=== PATIENT | female | born 1970 | race Caucasian/White ===

== ENCOUNTER → 2020-12-15 | Outpatient (CLI) | payer OTHER ==
[~2020-12-15] MED LIST: BREO ELLIPTA 11 EACH INH; DALIRESP 500500 MCG PO; DOCUSATE SODIU250 MG PO; GABAPENTIN800 MG PO; HYDROCODON-ACE1 EAC4 PO; IBUPROFEN600 MG PO; IPRAT-ALBUT 0.5-3 ML INH; NICODERM CQ1 EAC1 TD; PHYSICIANS1000 MCG/1 INJ; PROTONIX 40 MG40 M1 PO; SUBOXONE 8 MG-1 EACH SL; VENTOLIN HFA 66.7 GM INH; ZOFRAN 4 MG TAB4 MG PO
[2020-12-15 12:00] LABS: RED BLOOD COUNT 5.37 M/UL (4.00-5.10); WHITE BLOOD COUNT 11.5 K/UL (4.5-11.0)
== END ==
LOC: OPSV2 10:30
PROVIDERS: Obstetrics & Gynecology
DX: Z01.818 Encounter for other preprocedural examination (principal); M62.89 Other specified disorders of muscle; R94.31 Abnormal electrocardiogram [ECG] [EKG]
CPT/HCPCS: 36415; 81001; 85025; 93005

== ENCOUNTER 2020-12-26 06:46 | Day surgery (SDC) | payer OTHER ==
[~2020-12-26] VITALS: Ht 162.6 cm; Wt 68.0 kg
[2020-12-26] MEDS ORDERED: BREO ELLIPTA 11 EACH INH (07:16)
[2020-12-26] MEDS ORDERED: VENTOLIN HFA 66.7 GM INH (07:16)
[2020-12-26] MEDS ORDERED: GABAPENTIN800 MG PO (07:18)
[2020-12-26] MEDS ORDERED: IPRAT-ALBUT 0.5-3 ML INH (07:18)
[2020-12-26] MEDS ORDERED: PROTONIX 40 MG40 M1 PO (07:18)
[2020-12-26] MEDS ORDERED: SUBOXONE 8 MG-1 EACH SL (07:19)
[2020-12-26] MEDS ORDERED: PHYSICIANS1000 MCG/1 INJ (07:19)
[2020-12-26] MEDS ORDERED: DALIRESP 500500 MCG PO (07:20)
[2020-12-26] MEDS ORDERED: NICODERM CQ1 EAC1 TD (07:22)
[2020-12-26] MEDS ORDERED: ZOFRAN 4 MG TAB4 MG PO ×2 (10:54→12:11)
[2020-12-26] MEDS ORDERED: HYDROCODON-ACE1 EAC4 PO ×3 (10:54→12:16)
[2020-12-26] MEDS ORDERED: IBUPROFEN600 MG PO ×2 (10:54→12:11)
[2020-12-26] MEDS ORDERED: DOCUSATE SODIU250 MG PO ×2 (10:54→12:11)
--- NOTE | 2020-12-26 14:33 | NUR ---
DR. RICHARDSON NOTIFIED OF PATIENT BEING UNABLE TO VOID BUT DESCRIBING PAIN AND PRESSURE AT HER LOWER ABDOMEN. PATIENT STATED "I WOULDN'T BE IN ANY PAIN IF I COULD PEE." STATED TO STRIGHT CATH PATIENT. NO OTHER ORDERS AT THIS TIME. [id number] PATIENT STRAIGHT CATHED, TOLERATED WELL. 250ML OF ORANGE URINE DRAINED FROM BLADDER. PATIENT VERBALIZED UNDERSTANDING TO USE CALL [facility] WHEN READY TO GET OUT OF BED AGAIN. CALL [facility] AT BEDSIDE.
--- NOTE | 2020-12-26 16:25 | NUR ---
PATIENT VTE LEVEL 4, DR. RICHARDSON NOTIFIED OF LEVEL, NO NEW ORDERS AT THIS TIME. WILL CONTINUE TO USE SCUD PUMPS WHILE [facility] IS IN BED.
--- NOTE | 2020-12-26 16:58 | NUR ---
DR. RICHARDSON NOTIFIED THAT PATIENT DOES NOT HAVE TRANSPORATION HOME DUE TO WEATHER/ROAD CONDITIONS. PATIENT USES 2L O2 BY NASAL CANNULA AT HOME WHILE SLEEPING, STATED TO CONTINUE 02 USE WHILE IN [facility]. NO OTHER NEW ORDERS AT THIS TIME.
== END 2020-12-27 09:37 | disposition home or self-care (01) ==
LOC: OR 06:46 → OB 14:00 → OR 12-27 09:37 → OB 12-27 09:37
DX: N81.2 Incomplete uterovaginal prolapse (principal); N39.46 Mixed incontinence; N84.0 Polyp of corpus uteri; N72 Inflammatory disease of cervix uteri; J44.9 Chronic obstructive pulmonary disease, unspecified; F11.20 Opioid dependence, uncomplicated; F17.210 Nicotine dependence, cigarettes, uncomplicated; J45.909 Unspecified asthma, uncomplicated; M19.90 Unspecified osteoarthritis, unspecified site; D50.9 Iron deficiency anemia, unspecified
CPT/HCPCS: 71045; C1769; J0690; J1100; J1170; J2001; J2250; J2270; J2405; J2704; J2710; J2765; J3010; J7050; J7120